=== PATIENT | male | born 1970 | race Caucasian/White ===

== ENCOUNTER 2022-07-03 15:50 | Outpatient (CLI) | payer BC | END 2022-07-03 15:51 | disposition home or self-care (01) | LOC: CTENTCT 15:50 | PROVIDERS: ATTEND Specialist | DX: J32.9 Chronic sinusitis, unspecified (principal) | CPT/HCPCS: 70486 ==

== ENCOUNTER 2022-08-27 09:19 | Day surgery (SDC) | payer BC ==
[2022-08-26 11:17] VITALS: BMI 29.5
[2022-08-27] MEDS ORDERED: Oxymetazoline HCl 0.05% (30 ML BOT) ONE ×2 (10:15→11:30)
[2022-08-27] MEDS ORDERED: Bacitracin Zinc Ointment 30 gm TUBE ONE (11:30)
[2022-08-27] MEDS ORDERED: Lidocaine 1% (PF) 30 ML VIAL ONE (11:30)
[2022-08-27] MEDS ORDERED: EPINEPHrine 1 MG/ML AMP ONE (11:30)
[2022-08-27] MEDS ORDERED: fentaNYL Citrate/PF 100 MCG/2 ML SYRINGE ONE (11:35)
[2022-08-27] MEDS ORDERED: Dexamethasone 20 MG/5 ML VIAL ONE (11:53)
[2022-08-27] MEDS ORDERED: Lidocaine 1% MPF 2 ML VIAL ONE (11:53)
[2022-08-27] MEDS ORDERED: PROPOFOL 200 MG/20 ML VIAL ONE (11:53)
[2022-08-27] MEDS ORDERED: Ondansetron PF 4 MG/2 ML Vial ONE (11:53)
[2022-08-27] MEDS ORDERED: Rocuronium Bromide 10 MG/ML (10ML VIAL) ONE (11:53)
[2022-08-27] MEDS ORDERED: SUGAMMADEX SODIUM 200 MG/2 ML VIAL ONE (12:16)
[2022-08-27] MEDS ORDERED: Hydrocodone-Acetamin 15 ML UDCUP ONE (14:18)
== END 2022-08-27 14:57 | disposition home or self-care (01) ==
LOC: SDC 09:19
PROVIDERS: ATTEND Specialist
PROC: 09BR8ZZ Excision of Left Maxillary Sinus, Via Natural or Artificial Opening Endoscopic (ICD-10-PCS; principal; 2022-08-27)
PROC: 09BQ8ZZ Excision of Right Maxillary Sinus, Via Natural or Artificial Opening Endoscopic (ICD-10-PCS; principal; 2022-08-27)
PROC: 09BS8ZZ Excision of Right Frontal Sinus, Via Natural or Artificial Opening Endoscopic (ICD-10-PCS; principal; 2022-08-27)
PROC: 09SM0ZZ Reposition Nasal Septum, Open Approach (ICD-10-PCS; principal; 2022-08-27)
PROC: 09SL8ZZ Reposition Nasal Turbinate, Via Natural or Artificial Opening Endoscopic (ICD-10-PCS; principal; 2022-08-27)
PROC: 09BT8ZZ Excision of Left Frontal Sinus, Via Natural or Artificial Opening Endoscopic (ICD-10-PCS; principal; 2022-08-27)
DX: J32.8 Other chronic sinusitis (principal); J34.2 Deviated nasal septum; J34.3 Hypertrophy of nasal turbinates; J30.9 Allergic rhinitis, unspecified; I10 Essential (primary) hypertension; E78.5 Hyperlipidemia, unspecified; I25.2 Old myocardial infarction; N40.0 Benign prostatic hyperplasia without lower urinary tract symptoms; Z86.16 Personal history of COVID-19; Z87.891 Personal history of nicotine dependence; Z79.1 Long term (current) use of non-steroidal anti-inflammatories (NSAID); Z79.82 Long term (current) use of aspirin; Z79.899 Other long term (current) drug therapy
CPT/HCPCS: J0171; J1100; J2001; J2405; J2704

== ENCOUNTER 2024-01-17 14:44 | Emergency (ER) | payer BC ==
[2024-01-17] MEDS ORDERED: HYDROcodone/Acetaminophen 10/325 mg Tablet ONE (15:51)
== END 2024-01-17 19:55 | disposition home or self-care (01) ==
LOC: ERS 14:44
DX: S72.22XA Displaced subtrochanteric fracture of left femur, initial encounter for closed fracture (principal); K21.9 Gastro-esophageal reflux disease without esophagitis; E78.5 Hyperlipidemia, unspecified; I10 Essential (primary) hypertension; Z79.899 Other long term (current) drug therapy; Z79.82 Long term (current) use of aspirin; W18.30XA Fall on same level, unspecified, initial encounter
CPT/HCPCS: 72170